=== PATIENT | female | born 1955 | race Caucasian/White ===

== ENCOUNTER → 2024-07-28 11:18 | Outpatient (REF) | payer MEDICARE, OTHER, SELFPAY | LOC: RAD 11:18 | PROVIDERS: ATTENDING PHYSICIAN Family Medicine | DX: S02.2XXS Fracture of nasal bones, sequela (principal) | CPT/HCPCS: 70150; 70160 ==

== ENCOUNTER 2024-07-31 06:24 | Day surgery (SDC) | payer MEDICARE, OTHER, SELFPAY ==
--- NOTE | 2024-07-30 11:50 | PTCARENOTE ---
Abnormal EKG, see medical clearance addressing it, states 'unchanged from old EKG's over the past 4 years'.
[2024-07-31] VITALS (10 sets, daily range): BP systolic 121–149; BP diastolic 67–87; BMI 27.5
[2024-07-31] MEDS: TYLENOL 1000 MG PO (09:18)
[2024-07-31] MEDS: CELEBREX 200 MG PO (09:18)
[2024-07-31] MEDS: NORMOSOL-R/PLASMALYTE-A 1000 IV (09:32)
== END 2024-07-31 13:06 | disposition home or self-care (01) ==
LOC: SDS 06:24
PROVIDERS: ATTENDING PHYSICIAN Orthopaedic Surgery Hand Surgery; FAMILY PHYSICIAN Family Medicine
PROC: 0PSP04Z Reposition Right Metacarpal with Internal Fixation Device, Open Approach (ICD-10-PCS; 2024-07-31)
DX: S62.231A Other displaced fracture of base of first metacarpal bone, right hand, initial encounter for closed fracture (principal); W18.30XA Fall on same level, unspecified, initial encounter
CPT/HCPCS: 26615; 73100; 76000; C1713

== ENCOUNTER 2024-08-13 09:35 | Outpatient (RCR) | payer MEDICARE, OTHER, SELFPAY | END 2024-08-13 23:59 | disposition home or self-care (01) | LOC: ROT 09:35 | PROVIDERS: ATTENDING PHYSICIAN Student in an Organized Health Care Education/Training Program | DX: Z47.89 Encounter for other orthopedic aftercare (principal); S62.201D Unspecified fracture of first metacarpal bone, right hand, subsequent encounter for fracture with routine healing; Z73.6 Limitation of activities due to disability; M79.641 Pain in right hand | CPT/HCPCS: 97760 ==

== ENCOUNTER 2024-09-04 17:37 | Outpatient (RCR) | payer MEDICARE, OTHER, SELFPAY | END 2024-09-04 23:59 | disposition home or self-care (01) | LOC: ROT 17:37 | PROVIDERS: ATTENDING PHYSICIAN Student in an Organized Health Care Education/Training Program | DX: S62.201D Unspecified fracture of first metacarpal bone, right hand, subsequent encounter for fracture with routine healing (principal); X58.XXXD Exposure to other specified factors, subsequent encounter; Z73.6 Limitation of activities due to disability | CPT/HCPCS: 97022; 97110; 97140; 97166; 97535 ==

== ENCOUNTER 2024-09-25 16:18 | Outpatient (RCR) | payer MEDICARE, OTHER, SELFPAY | END 2024-10-02 07:40 | disposition home or self-care (01) | LOC: ROT 16:18 | PROVIDERS: ATTENDING PHYSICIAN Student in an Organized Health Care Education/Training Program | DX: Z47.89 Encounter for other orthopedic aftercare (principal); S62.201D Unspecified fracture of first metacarpal bone, right hand, subsequent encounter for fracture with routine healing; Z73.6 Limitation of activities due to disability | CPT/HCPCS: 97010; 97110; 97140 ==

== ENCOUNTER → 2025-03-27 13:59 | Outpatient (REF) | payer MEDICARE, OTHER, SELFPAY ==
[2025-03-27 14:41] LABS: % Basophils 0.4 % (0-2); % Eosinophils 2.4 % (0-6); % Immature Granulocytes 0.2 % (0-0.5); % Lymphocytes 21.3 % (20.5-51.1); % Monocytes 6.7 % (1.7-9.3); Absolute Eosinophils 0.1 10^3/uL (0-0.7); Absolute Lymphocytes 1.2 10^3/uL (1.2-3.4); Absolute Monocytes 0.4 10^3/uL (0.1-0.6); Absolute Neutrophils 3.7 10^3/uL (1.4-6.5); Hematocrit 35.5 % (37.0-47.0); Hemoglobin 12.6 g/dL (12.0-16.0); Mean Corp Hgb Conc. 35.5 g/dL (33.0-37.0); Mean Corpuscular Hgb 30.4 pg (27.0-31.0); Mean Corpuscular Volume 85.7 fL (81.0-99.0); Mean Platelet Volume 9.8 fL (7.4-10.4); Nucleated Red Blood Cells % 0 %; Platelet Count 225 10^3/uL (130-400); Red Blood Cell Count 4.14 10^6/uL (4.20-5.40); Red Cell Dist. Width 14.8 % (11.5-14.5); White Blood Cell Count 5.4 10^3/uL (4.8-10.8)
[2025-03-27 15:36] LABS: Blood Urea Nitrogen 12 mg/dl (7-17); Calcium 9.6 mg/dl (8.4-10.2); Carbon Dioxide 31 mmol/L (22-30); Chloride 106 mmol/L (98-107); Glucose 104 mg/dl (70-99); Potassium 4.4 mmol/L (3.5-5.1); Sodium 142 mmol/L (135-145); eGFR > 60.00
== END ==
LOC: RCS 13:59
PROVIDERS: ATTENDING PHYSICIAN Orthopaedic Surgery Hand Surgery; FAMILY PHYSICIAN Family Medicine
DX: Z01.818 Encounter for other preprocedural examination (principal)
CPT/HCPCS: 36415; 80048; 85025; 93005